=== PATIENT | male | born 1985 | race Caucasian/White ===

== ENCOUNTER 2023-12-26 09:57 | Day surgery (SDC) | payer OTHER ==
[~2023-12-26] VITALS: Ht 167.6 cm; Wt 73.0 kg
[~2023-12-26 09:57] MED LIST: ACET-683 PO; IBUP80TA PO
[2023-12-26] MEDS ORDERED: ONDANSETRON 4MG 2ML VIAL As Ordered ONE (13:09)
[2023-12-26] MEDS ORDERED: fentaNYL 250 MCG/5 ML INJECTION As Ordered ONE (13:09)
[2023-12-26] MEDS ORDERED: LIDOCAINE 2% 100MG/5ML SDV (FOR ANES.) As Ordered ONE (13:09)
[2023-12-26] MEDS ORDERED: propofoL 200 MG/20 ML VIAL As Ordered ONE (13:09)
[2023-12-26] MEDS ORDERED: MIDAZOLAM INJ 2MG/2ML VIAL As Ordered ONE (13:09)
[2023-12-26] MEDS ORDERED: SUGAMMADEX SODIUM 500 MG/5 ML VIAL (BRIDION) As Ordered ONE (13:09)
[2023-12-26] MEDS ORDERED: dexmedeTOMIDine (4MCG/ML)200MCG/50ML BTL (PRECEDEX) As Ordered ONE (13:16)
[2023-12-26] MEDS ORDERED: METOCLOPRAMIDE INJ 10MG/2ML VIAL As Ordered ONE (13:17)
[2023-12-26] MEDS ORDERED: ROPIvacaine 0.5% 30ML VIAL PN ONE (13:25)
[2023-12-26] MEDS ORDERED: LIDOCAINE 1% SDV 5ML VIAL PN ONE (13:25)
[2023-12-26] MEDS ORDERED: EPINEPHrine INJ 1 MG/ML 1ML AMP PN ONE (13:25)
[2023-12-26] MEDS ORDERED: fentaNYL 100 MCG/2 ML INJECTION IV PRN ×2 (13:25→17:45)
[2023-12-26] MEDS ORDERED: MIDAZOLAM INJ 2MG/2ML VIAL IV PRN (13:25)
[2023-12-26] MEDS ORDERED: SEVOFLURANE INHAL SOLN 250 ML BTL As Ordered ONE (14:28)
[2023-12-26] MEDS ORDERED: LACRILUBE (AKWA TEARS) OPHTH OINT 3.5GM As Ordered ONE (14:32)
[2023-12-26] MEDS: ceFAZolin SOD 2 GM in IV 1 EA IV ONE (15:20)
[2023-12-26] MEDS: TRANEXAMIC ACID 100 MG/ML 10ML VIAL IV ONE (15:30)
[2023-12-26] MEDS: TRANEXAMIC ACID 100 MG/ML 10ML VIAL As Ordered ONE (16:37)
[2023-12-26] MEDS ORDERED: ACETAMINOPHEN 1000MG 100ML IV BAG As Ordered ONE (16:43)
[2023-12-26] MEDS ORDERED: KETOROLAC 60MG 2ML VIAL As Ordered ONE (16:45)
[2023-12-26] MEDS ORDERED: HYDROmorphone HCL 2MG/ML 1ML VIAL As Ordered ONE (16:51)
[2023-12-26] MEDS: EPINEPHrine 1MG/ML INJ 30ML MD-VIAL As Ordered ONE (16:59)
[2023-12-26] MEDS: VANCOMYCIN 1000MG/20ML VIAL As Ordered ONE (17:00)
[2023-12-26] MEDS ORDERED: HYDROMORPHONE HCL 0.5 MG/ 0.5 ML SYRINGE IV PRN (17:45)
[2023-12-26] MEDS ORDERED: ONDANSETRON 4MG 2ML VIAL IV PRN ×2 (17:45)
[2023-12-26] MEDS ORDERED: METOCLOPRAMIDE INJ 10MG/2ML VIAL IV PRN (17:45)
[2023-12-26] MEDS ORDERED: oxyCODONE 5MG TAB PO PRN (17:45)
[2023-12-26] MEDS ORDERED: LR 1,000 ML IV SCH ×2 (17:45)
[2023-12-26 18:55] VITALS: BP 115/75; TEMP 97.3; O2SAT 98
== END 2023-12-26 19:24 | disposition home or self-care (01) ==
LOC: M SDC 09:57
PROVIDERS: ATTEND Orthopaedic Surgery
DX: M75.41 Impingement syndrome of right shoulder (principal); M25.711 Osteophyte, right shoulder; M19.011 Primary osteoarthritis, right shoulder; M65.9 Synovitis and tenosynovitis, unspecified; F17.290 Nicotine dependence, other tobacco product, uncomplicated
CPT/HCPCS: 23120; J0131; J0171; J0690; J1100; J1170; J1885; J2250; J2405; J2765; J3010; J3370